=== PATIENT | male | born 1940 | race Caucasian/White ===

== ENCOUNTER 2024-06-09 09:52 | Outpatient (AMB) | payer MEDICARE, OTHER, SELFPAY ==
--- NOTE | 2024-06-09 09:53 | A.OFFVIS_ITS ---
Vital Signs 06/09/24 10:01 Height 5 ft 7 in Weight 160 lb 6 oz BMI 25.1 BP 120/60 Blood Pressure Location Lt brachial Position Sitting Respiration 16 Pulse 66 Pulse Source Pulse Oximeter Pulse Oximetry (%) 95 Oxygen Delivery Method Room Air Intake Visit Reasons: Rt hip/shoulder pain Intake Note: Patient comes in for initial visit was referred by [facility] primary care. He is accompanied by spouse Mandi. Reports pain 5/10. Accompanied by: Spouse Allergies codeine phosphate Allergy (Unknown, Uncoded 06/08/24 16:45) Rash HPI Comments Details: Rico is very pleasant 83 years old gentleman who presents in my office with complains on pain in the left hip, pain in the left shoulder, pain in the lower back. He reports that pain in the hip is aggravated with lateral rotation of the hip and attempt to left hip flexion. He reports minor pain in the left shoulder however his range of motion in the left shoulder is quite preserved. And he reports pain in lower back which is aggravated with prolonged sitting. Reports flexing forward aggravates his pain in the back as well. He reports that he can sleep normally, he can do activities of daily living, he can take care of himself. He can function normally. Heat applications and oral medications make his pain better he takes Tylenol Arthritis twice a day to help his pain. 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 He had an x-ray of the left hip joint results of which dictated as below. He never had any physical therapy for his pains. Never had any injections. He has mild congestive heart failure history of diabetes type 2 history of coronary artery bypass grafting secondary to chest pain angina the surgery was performed in 2003. Also had surgery of the knees in 1972. He denies smoking cigarettes he denies drinking alcohol he drinks 1 cup of coffee a day and he admits 1 cannabis gum in a day. [facility] Medical History (Updated 06/09/24 @ 10:50 by Sunny Schilling MD) Overweight Myocardial infarct, old Microalbuminuria Major depressive disorder in partial remission Lymphocytic colitis Ischemic cardiomyopathy Hypogonadism male Hypertension Hyperlipemia Diabetes mellitus with microalbuminuria BPH (benign prostatic hyperplasia) Anemia Surgical History (Updated 06/08/24 @ 16:51 by Renay Ho) H/O left knee surgery H/O inguinal hernia repair Hx of CABG Hx of appendectomy Social History (Updated 06/08/24 @ 16:52 by Renay Ho) Patient Tobacco Use Status: Former Tobacco user Review of Systems Const All systems reviewed & are unremarkable except as noted in HPI and below ENT Reports Normal hearing present Neuro Reports Normal hearing present, Denies Abnormal speech present, Denies confusion and Denies Sensory deficit (Neuro) Psych Denies confusion Physical Exam Vital Signs: Last Vital Signs Pulse 66 06/09/24 10:01 Resp 16 06/09/24 10:01 BP 120/60 06/09/24 10:01 Pulse Ox 95 06/09/24 10:01 Oxygen Delivery Method Room Air 06/09/24 10:01 BMI result Body Mass Index 25.1 Const General: no acute distress; No confusion Orientation/consciousness: patient oriented x3 and No confusion Eyes General: appearance normal, both eyes and all related structures Pupils: Equal, round and reactive pupils present EOM: EOMs intact bilaterally Neck Neck: Yes full ROM Chest Chest palpation & inspection: normal inspection of the chest Resp Effort & Inspection: normal respiratory effort, able to speak in complete sentences, normal respiratory pattern, no audible wheezes and no cough Cardio Jugular venous distension: no JVD GI Inspection: Yes normal to inspection Back/Spine/Pelvis Other: No tenderness on palpation in paraspinal spinal region of the lumbar spine, flexing forward aggravates his pain. Flexing backwards does not aggravate his pain however loading test on the left as positive. It may be related to the hip problem as well. Unable to perform Jaya test on the left. Neuro General: patient oriented x3, gait normal and No confusion Cranial nerves: Yes CN's II-XII intact bilaterally, Yes Equal, round and reactive pupils present, Yes Normal hearing present and Yes Ability to bilaterally elevate shoulders present Speech: No Abnormal speech present Gait exam (Neuro): Normal gait present Motor exam (neuro): 5/5 motor strength present throughout Sensory Exam: No Sensory deficit (Neuro) Extrem Other: Excellent range of motion of left shoulder minimal discomfort was performance of the right shoulder motions. 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 Lateral rotation of the left hip as well as attempt to flex left hip cause severe discomfort in the left groin in the left thigh. General: No pedal edema Psych Speech and movement: Normal speech and movement present Affect: normal affect Attitude: cooperative Thought process: Normal thought process present Thought content: Normal thought content present Insight: Good insight present (Psych) Judgement: Good judgement present (Psych) Results Reviewed Results Reviewed: Hip x-ray There is moderate narrowing of the joint space but without any significant degenerative changes. Normal femoral head contour without evidence of avascular necrosis. There is evidence for disc space narrowing and bone spurring in the lower lumbar spine. Assessment & Plan Assessment & Plan (1) Arthritis of left hip: Code(s): M16.12 - Unilateral primary osteoarthritis, left hip Category: Medical (2) Other specified arthritis, left shoulder: Code(s): M13.812 - Other specified arthritis, left shoulder Category: Medical (3) Left hip pain: Code(s): M25.552 - Pain in left hip Category: Medical (4) Vertebrogenic low back pain: Code(s): M54.51 - Vertebrogenic low back pain Category: Medical Plan I will schedule this patient for the therapeutic left hip injection. This patient is diabetic and he has blood sugar machine at home he can not monitor the level of the sugars after the procedure. I will send this patient for the MRI of the lumbar spine to rule out or confirm vertebrogenic pain syndrome. I also will schedule this patient for physical therapy for his shoulder pain at the office of his convenience next to his household. We will mail of the order to the patient and also we will provide the order to the [facility] facility which is closer to him. I will see this patient after therapeutic left hip joint injection. Orders: Orders MR lumbar spine wo con Today M54.51 - Vertebrogenic low back pain PT Evaluation and Treatment Today M13.812 - Other specified arthritis, left shoulder, M16.12 - Unilateral primary osteoarthritis, left hip Patient Instructions: I here by testify that I spent 45 minutes in conversation with this patient as well as planning his care and organizing this note. Coding Level of Care Code New Pt Level 4 (78147) Diagnoses Arthritis of left hip M16.12 Other specified arthritis, left shoulder M13.812 Left hip pain M25.552 Vertebrogenic low back pain M54.51
[2024-06-09 10:01] VITALS: BP 120/60; PULSE 66; RESP 16; O2SAT 95; BMI 25.1
== END 2024-06-09 10:30 | disposition home or self-care (01) ==
PROVIDERS: PCP Internal Medicine; Visit Provider Anesthesiology
DX: M25.552 Pain in left hip (principal); M16.12 Unilateral primary osteoarthritis, left hip; M25.512 Pain in left shoulder; M54.51 Vertebrogenic low back pain
CPT/HCPCS: 99204

== ENCOUNTER → 2024-06-09 09:52 | Outpatient (BNVA) | payer MEDICARE, OTHER, SELFPAY | PROVIDERS: PCP Internal Medicine; Visit Provider Anesthesiology | DX: M16.12 Unilateral primary osteoarthritis, left hip (principal); M13.812 Other specified arthritis, left shoulder; M25.552 Pain in left hip; M54.51 Vertebrogenic low back pain | CPT/HCPCS: 99202 ==

== ENCOUNTER 2024-07-04 14:21 | Outpatient (REF) | payer MEDICARE, OTHER, SELFPAY | END 2024-07-04 14:22 | disposition home or self-care (01) | LOC: HO.MRI 14:21 | PROVIDERS: PCP Internal Medicine; Visit Provider Anesthesiology | DX: M54.51 Vertebrogenic low back pain (principal) | CPT/HCPCS: 72148 ==

== ENCOUNTER → 2024-07-04 14:49 | Outpatient (BNV) | payer MEDICARE, OTHER, SELFPAY | PROVIDERS: PCP Internal Medicine; Visit Provider Radiology Diagnostic Radiology | DX: M43.16 Spondylolisthesis, lumbar region (principal); M48.061 Spinal stenosis, lumbar region without neurogenic claudication | CPT/HCPCS: 72148 ==

== ENCOUNTER 2024-08-24 06:11 | Outpatient (REF) | payer MEDICARE, OTHER, SELFPAY ==
--- NOTE | ~2024-08-24 | FL_ITS ---
EXAMINATION: XR FLUOROSCOPY WITH IMAGES CLINICAL INFORMATION: Left hip pain management injection COMPARISON: None available. TECHNIQUE: Fluoroscopy provided to: Dr. Schilling Fluoroscopy time: 0.1 minutes DAP: 0.218 mGycm2 Images: 2 FINDINGS: 2 images obtained during left hip joint intra-articular steroid injection. Refer to the full operative report. FL/FL guidance in treatment room IMPRESSION: Fluoroscopic guidance. Electronically signed by: Ashkan Majano MD 08/26/2024 11:07 AM CHARLIE STEELE
== END 2024-08-24 06:12 | disposition home or self-care (01) ==
LOC: CF 06:11
PROVIDERS: Visit Provider Anesthesiology
DX: M16.12 Unilateral primary osteoarthritis, left hip (principal); M13.812 Other specified arthritis, left shoulder; M54.51 Vertebrogenic low back pain
CPT/HCPCS: 20610; J2003; J2795; J3301; Q9967

== ENCOUNTER 2024-08-24 08:49 | Outpatient (AMB) | payer MEDICARE, OTHER, SELFPAY ==
[2024-08-24 08:55] VITALS: BP 114/60; PULSE 65; O2SAT 97
--- NOTE | 2024-08-24 08:55 | A.OFFVIS_ITS ---
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 Allergies codeine phosphate Allergy (Unknown, Uncoded 08/24/24 08:55) Rash Medication List - Last Reconciled 08/24/24 by Trista Oliveros, KILN BURNER HELPER atorvastatin 40 mg PO DAILY carvedilol mg PO citalopram 20 mg PO DAILY cyclobenzaprine mg PO empagliflozin (Jardiance) mg PO glimepiride mg PO lisinopril mg PO metformin 500 mg PO BID PFSH Medical History (Updated 06/09/24 @ 10:50 by Sunny Schilling MD) Overweight Myocardial infarct, old Microalbuminuria Major depressive disorder in partial remission Lymphocytic colitis Ischemic cardiomyopathy Hypogonadism male Hypertension Hyperlipemia Diabetes mellitus with microalbuminuria BPH (benign prostatic hyperplasia) Anemia Surgical History (Updated 06/08/24 @ 16:51 by Renay Ho) H/O left knee surgery H/O inguinal hernia repair Hx of CABG Hx of appendectomy Social History (Updated 06/08/24 @ 16:52 by Renay Ho) Patient Tobacco Use Status: Former Tobacco user Physical Exam Vital Signs: Last Vital Signs Pulse 89 08/24/24 10:23 Resp 16 08/24/24 10:23 BP 120/78 08/24/24 10:23 Pulse Ox 98 08/24/24 10:23 Oxygen Delivery Method Room Air 08/24/24 10:23 BMI result Body Mass Index 9.4 Assessment & Plan Assessment & Plan (1) Arthritis of left hip: Code(s): M16.12 - Unilateral primary osteoarthritis, left hip Category: Medical (2) Other specified arthritis, left shoulder: Code(s): M13.812 - Other specified arthritis, left shoulder Category: Medical (3) Left hip pain: Code(s): M25.552 - Pain in left hip Category: Medical (4) Vertebrogenic low back pain: Code(s): M54.51 - Vertebrogenic low back pain Category: Medical Plan: Intra-articular left hip steroid injection. Informed consent was explained to the patient. All questions were explained and? answered.? The patient was taken inside the operating room where he was positioned right lateral decubitus on the operating table.? Time-out was performed delineating correct site, side, the nature of the procedure, patient's allergy, preoperative antibiotic if needed.? All operating room staff was participating in OR time-out procedure.? The patient stated his name. Non dependent left hip was prepped with ChloraPrep and draped with sterile towels.? The C-arm was brought over the operating field and the picture of bilateral hip joints were obtained on the screen.? The left hip joint was chosen as the target for the injection.? The trochanter position was noted on the screen.? The projection of the trochanter to the skin was noted, the direction of the femoral neck was noted.? The skin was anesthetized using 2% lidocaine at the trochanter area.? 22 gauge 5 in needle was inserted through the skin and advanced to the hip joint silhouette on anterior posterior view.? When needle entered the joint the injection of the contrast was performed demonstrating intra-articular spread of the contrast.? After that 4 cc of ropivacaine 0.5% mixed with Kenalog 40 mg was injected into the area.? The needle was removed sterile dressing was applied. The patient tolerated procedure well. Plan I will schedule this patient for the therapeutic left hip injection. This patient is diabetic and he has blood sugar machine at home he can not monitor the level of the sugars after the procedure. I will send this patient for the MRI of the lumbar spine to rule out or confirm vertebrogenic pain syndrome. I also will schedule this patient for physical therapy for his shoulder pain at the office of his convenience next to his household. We will mail of the order to the patient and also we will provide the order to the [facility] facility which is closer to him. I will see this patient after therapeutic left hip joint injection. Orders: Orders FL guidance in treatment room Today M25.552 - Pain in left hip Coding Level of Care Code Procedure Only Diagnoses Arthritis of left hip M16.12 Other specified arthritis, left shoulder M13.812 Left hip pain M25.552 Vertebrogenic low back pain M54.51
[2024-08-24 10:23] VITALS: BP 120/78; PULSE 89; RESP 16; O2SAT 98
== END 2024-08-24 10:16 | disposition home or self-care (01) ==
LOC: HO.PMCPRC 08:49
PROVIDERS: PCP Internal Medicine; Visit Provider Anesthesiology
DX: M16.12 Unilateral primary osteoarthritis, left hip (principal); M25.552 Pain in left hip; M54.51 Vertebrogenic low back pain; M13.812 Other specified arthritis, left shoulder
CPT/HCPCS: 20610; 77002

== ENCOUNTER 2024-09-09 12:42 | Outpatient (AMB) | payer MEDICARE, OTHER, SELFPAY ==
[2024-09-09 12:56] VITALS: BP 111/58; PULSE 71; O2SAT 99; BMI 23.9
--- NOTE | 2024-09-09 12:56 | MHC.OFFVIS ---
Vital Signs 09/09/24 12:56 Height 5 ft 7 in Weight 152 lb 8 oz BMI 23.9 BP 111/58 L Blood Pressure Location Rt brachial Position Sitting Pulse 71 Pulse Source Pulse Oximeter Pulse Oximetry (%) 99 Oxygen Delivery Method Room Air Intake Visit Reasons: LEFT HIP INJECTION Allergies codeine phosphate Allergy (Unknown, Uncoded 09/09/24 12:58) Rash HPI Comments Details: Rico is back in my office after therapeutic left hip injection. He reports today pain 0.5/10. It is 1 month after the procedure. He reports improved mobility, improved activities of daily living, improved social interaction. He reports that axial back pain does not bother him. Therefore I would consider Modic type changes in his lower back a bystander finding. Obviously does not cause any symptoms for this patient now. Continuation of the treatment was explained to the patient. Options of the repeat of the steroid injections, options of total hip replacement, as well as option of PRP injection were explained to the patient. Prior: complains on pain in the left hip, pain in the left shoulder, pain in the lower back. He reports that pain in the hip is aggravated with lateral rotation of the hip and attempt to left hip flexion. He reports minor pain in the left shoulder however his range of motion in the left shoulder is quite preserved. And he reports pain in lower back which is aggravated with prolonged sitting. Reports flexing forward aggravates his pain in the back as well. He has mild congestive heart failure history of diabetes type 2 history of coronary artery bypass grafting secondary to chest pain angina the surgery was performed in 2003. Also had surgery of the knees in 1972. He denies smoking cigarettes he denies drinking alcohol he drinks 1 cup of coffee a day and he admits 1 cannabis gum in a day. 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 Lymphocytic colitis Ischemic cardiomyopathy Hypogonadism male Hypertension Hyperlipemia Diabetes mellitus with microalbuminuria BPH (benign prostatic hyperplasia) Anemia Surgical History (Updated 06/08/24 @ 16:51 by Renay Ho) H/O left knee surgery H/O inguinal hernia repair Hx of CABG Hx of appendectomy Social History (Updated 06/08/24 @ 16:52 by Renay Ho) Patient Tobacco Use Status: Former Tobacco user Review of Systems Const All systems reviewed & are unremarkable except as noted in HPI and below ENT Reports Normal hearing present Neuro Reports Normal hearing present, Denies Abnormal speech present, Denies confusion and Denies Sensory deficit (Neuro) Psych Denies confusion Physical Exam Vital Signs: Last Vital Signs Pulse 71 09/09/24 12:56 BP 111/58 L 09/09/24 12:56 Pulse Ox 99 09/09/24 12:56 Oxygen Delivery Method Room Air 09/09/24 12:56 BMI result Body Mass Index 23.9 Const General: no acute distress; No confusion Orientation/consciousness: patient oriented x3 and No confusion Eyes General: appearance normal, both eyes and all related structures Pupils: Equal, round and reactive pupils present EOM: EOMs intact bilaterally Neck Neck: Yes full ROM Chest Chest palpation & inspection: normal inspection of the chest Resp Effort & Inspection: normal respiratory effort, able to speak in complete sentences, normal respiratory pattern, no audible wheezes and no cough Cardio Jugular venous distension: no JVD GI Inspection: Yes normal to inspection Back/Spine/Pelvis Other: No tenderness on palpation in paraspinal spinal region of the lumbar spine, flexing forward aggravates his pain. Flexing backwards does not aggravate his pain however loading test on the left as positive. It may be related to the hip problem as well. Unable to perform Jaya test on the left. Neuro General: patient oriented x3, gait normal and No confusion Cranial nerves: Yes CN's II-XII intact bilaterally, Yes Equal, round and reactive pupils present, Yes Normal hearing present and Yes Ability to bilaterally elevate shoulders present Speech: No Abnormal speech present Gait exam (Neuro): Normal gait present Motor exam (neuro): 5/5 motor strength present throughout Sensory Exam: No Sensory deficit (Neuro) Extrem Other: Excellent range of motion of left shoulder minimal discomfort was performance of the right shoulder motions. 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 Lateral rotation of the left hip as well as attempt to flex left hip cause severe discomfort in the left groin in the left thigh. General: No pedal edema Psych Speech and movement: Normal speech and movement present Affect: normal affect Attitude: cooperative Thought process: Normal thought process present Thought content: Normal thought content present Insight: Good insight present (Psych) Judgement: Good judgement present (Psych) Assessment & Plan Assessment & Plan (1) Arthritis of left hip: Code(s): M16.12 - Unilateral primary osteoarthritis, left hip Category: Medical (2) Other specified arthritis, left shoulder: Code(s): M13.812 - Other specified arthritis, left shoulder Category: Medical (3) Left hip pain: Code(s): M25.552 - Pain in left hip Category: Medical (4) Vertebrogenic low back pain: Code(s): M54.51 - Vertebrogenic low back pain Category: Medical Plan Excellent results of the therapeutic left hip injection. Pain relief was decreased to 0.5/10. It remains low for the past 18 days since injection. Discussion see as above. I do not think vertebra genic pain syndrome is related to this patient. PRP was discussed, total hip replacement was discussed, continuation of the steroid injections was discussed. Coding Level of Care Code Est Pt Level 3 (91279) Diagnoses Arthritis of left hip M16.12 Other specified arthritis, left shoulder M13.812 Left hip pain M25.552 Vertebrogenic low back pain M54.51
== END 2024-09-09 13:21 | disposition home or self-care (01) ==
PROVIDERS: PCP Internal Medicine; Visit Provider Anesthesiology
DX: M16.12 Unilateral primary osteoarthritis, left hip (principal); M25.552 Pain in left hip; M54.51 Vertebrogenic low back pain
CPT/HCPCS: 99213

== ENCOUNTER → 2024-09-09 12:42 | Outpatient (BNVA) | payer MEDICARE, OTHER, SELFPAY | PROVIDERS: PCP Internal Medicine; Visit Provider Anesthesiology | DX: M16.12 Unilateral primary osteoarthritis, left hip (principal); M13.812 Other specified arthritis, left shoulder; M25.552 Pain in left hip; M54.51 Vertebrogenic low back pain | CPT/HCPCS: 99212 ==